=== PATIENT | female | born 1970 | race Caucasian/White ===

== ENCOUNTER 2016-06-16 00:51 | Observation (INO) | payer SELFPAY ==
[2016-06-16] MEDS ORDERED: ONDANSETRON 4 MG/2 ML VIAL ONE (01:14)
[2016-06-16] MEDS ORDERED: NS 1,000 ML IV ONE ×2 (01:24→02:34)
[2016-06-16] MEDS ORDERED: ONDANSETRON 4 MG/2 ML VIAL IVP ONE ×3 (01:24→02:34)
--- NOTE | 2016-06-16 01:29 | EDPHY ---
H & P Smoking Status: Never smoked Time Seen by Provider: 06/16/16 01:11 HPI/ROS: CHIEF COMPLAINT: Abdominal pain, vomiting HISTORY OF PRESENT ILLNESS: 46-year-old female presents to the emergency department with abdominal pain and vomiting that began around 3:00 p.m. this afternoon. She denies any known trauma or injury. She states that initially she started with abdominal pain which has become much worse. She has vomited 3 times. No back pain. No urinary symptoms. No reported trauma. No chest pain or difficulty breathing. No known ill contacts. No diarrhea. Last menstrual period was 1 month ago. REVIEW OF SYSTEMS: Constitutional: Subjective fevers. Eyes: No double or blurry vision. ENT: No sore throat. Respiratory: No cough, no shortness of breath. Cardiac: No chest pain. Gastrointestinal: Abdominal pain, vomiting as above. No diarrhea. Genitourinary: No dysuria. Musculoskeletal: No neck or back pain. Skin: No rashes. Neurological: No headache. (Sasha Gant) Past Medical/Surgical History: Negative (Sasha Gant M) Social History: Single and lives in [place] (Sasha Gant M) Physical Exam: General Appearance: Alert, no distress. Afebrile. Eyes: Pupils equal and round. Extraocular motions are all intact. ENT: Mouth: Mucous membranes moist. Respiratory: No wheezing, rhonchi, or rales, lungs are clear to auscultation. Cardiovascular: Regular rate and rhythm. Gastrointestinal: Abdomen is soft. Tenderness with palpation in the right lower quadrant and slightly in the left lower quadrant. There is no rebound, guarding or masses noted. No CVA tenderness bilaterally. Neurological: Alert and oriented x 3, cranial nerves II through XII grossly intact Skin: Warm and dry, no rashes. Musculoskeletal: Nontender to palpate along the cervical, thoracic or lumbar spine. Neck is supple. Extremities: Full range of motion and no peripheral edema. Psychiatric: Patient is oriented X 3, there is no agitation. (Sasha Gant M) Constitutional: Initial Vital Signs Temperature (C) 36.4 C 06/16/16 00:57 Heart Rate 71 06/16/16 00:57 Respiratory Rate 20 06/16/16 00:57 Blood Pressure 145/82 H 06/16/16 00:57 O2 Sat (%) 97 05/06/17 00:57 O2 Delivery Mode Room Air Allergies/Adverse Reactions: No Known Allergies Allergy (Unverified 06/16/16 00:57) Home Medications: Medication Instructions Recorded NK [No Known Home Meds] 06/16/16 Medical Decision Making ED Course/Re-evaluation: 46-year-old female presents to the emergency department with abdominal pain and vomiting. She is afebrile. Laboratory studies are pending. The patient has pain with palpation in the right lower quadrant as well as the left lower quadrant. I was concerned about possible acute appendicitis. She also could possibly have diverticular disease. I discussed the pros and cons of CT imaging of her abdomen and pelvis including radiation exposure and the patient agreed with CT scan. (Sasha Gant) [id number]: I did go and see and evaluate the patient. She does have right lower quadrant abdominal pain this pain started at 9:[address] scan has been called to me by Dr. Dexter merchant and shows acute appendicitis retrocecal. Possible perforation. I have ordered this patient other L fluid IV 1 g Invanz, IV Zofran and IV Dilaudid for pain control. I will consult General surgery for acute appendicitis. I did consult Dr. Nuñez with surgery who will come and see and evaluate the patient (Navneet Razo) Differential Diagnosis: Including but not limited to acute appendicitis, urinary tract infection, pyelonephritis, diverticulitis, peptic ulcer disease, GERD, gastritis (Sasha Gant) Care Turn Over: Care will be turned over to Dr. Navneet Razo at 2:00 a.m. for disposition and plan. (Sasha Gant) - Data Points Laboratory Results: Laboratory Results 06/16/16 01:20 06/16/16 01:20 06/16/16 06/16/16 06/16/16 01:42 01:20 01:20 WBC RBC Hgb POC Hgb 16.0 gm/dL H gm/dL (12.3-15.9) Hct POC Hct 47 % % (35.5-47.5) MCV MCH MCHC RDW Plt Count MPV Neut % (Auto) Lymph % (Auto) Yates % (Auto) Eos % (Auto) Baso % (Auto) Nucleat RBC Rel Count Absolute Neuts (auto) Absolute Lymphs (auto) Absolute Monos (auto) Absolute Eos (auto) Absolute Basos (auto) Absolute Nucleated RBC Immature Gran % Immature Gran # POC Sodium 143 mEq/L mEq/L (134-144) Sodium 139 mEq/L mEq/L (134-144) POC Potassium 3.6 mEq/L mEq/L (3.3-5.0) Potassium 4.2 mEq/L mEq/L (3.5-5.2) POC Chloride 104 mEq/L mEq/L (96-108) Chloride 108 mEq/L mEq/L (97-110) Carbon Dioxide 23 mEq/l mEq/l (22-31) Anion Gap 8 mEq/L mEq/L (8-16) POC BUN 12 mg/dL mg/dL (7-23) BUN 12 mg/dL mg/dL (7-23) Creatinine 0.8 mg/dL mg/dL (0.6-1.0) POC Creatinine 0.8 mg/dL mg/dL (0.6-1.2) Estimated GFR > 60 Glucose 132 mg/dL H mg/dL (70-100) POC Glucose 125 mg/dL H mg/dL (70-100) Calcium 8.7 mg/dL mg/dL (8.5-10.4) Total Bilirubin 0.6 mg/dL mg/dL (0.1-1.4) Conjugated Bilirubin 0.4 mg/dL mg/dL (0.0-0.5) Unconjugated Bilirubin 0.2 mg/dL mg/dL (0.0-1.1) AST 31 IU/L IU/L (14-46) ALT 37 IU/L IU/L (9-52) Alkaline Phosphatase 55 IU/L IU/L (38-126) Total Protein 6.0 g/dL L g/dL (6.3-8.2) Albumin 3.8 g/dL g/dL (3.5-5.0) Lipase 327.0 IU/L H IU/L (23-300) Beta HCG, Qual NEGATIVE Urine Color Urine Appearance Urine pH Ur Specific Shedd Urine Protein Urine Ketones Urine Blood Urine Nitrate Urine Bilirubin Urine Urobilinogen Ur Leukocyte Esterase Urine RBC Urine WBC Ur Epithelial Cells Urine Mucus Urine Glucose 06/16/16 06/16/16 01:20 01:10 WBC 11.83 10^3/uL H 10^3/uL (3.80-9.50) RBC 5.18 10^6/uL 10^6/uL (4.18-5.33) Hgb 14.5 g/dL g/dL (12.6-16.3) POC Hgb Hct 45.2 % % (38.0-47.0) POC Hct MCV 87.3 fL fL (81.5-99.8) MCH 28.0 pg pg (27.9-34.1) MCHC 32.1 g/dL L g/dL (32.4-36.7) RDW 14.1 % % (11.5-15.2) Plt Count 231 10^3/uL 10^3/uL (150-400) MPV 10.1 fL fL (8.7-11.7) Neut % (Auto) 84.4 % H % (39.3-74.2) Lymph % (Auto) 9.6 % L % (15.0-45.0) Yates % (Auto) 4.3 % L % (4.5-13.0) Eos % (Auto) 0.8 % % (0.6-7.6) Baso % (Auto) 0.5 % % (0.3-1.7) Nucleat RBC Rel Count 0.0 % % (0.0-0.2) Absolute Neuts (auto) 9.97 10^3/uL H 10^3/uL (1.70-6.50) Absolute Lymphs (auto) 1.14 10^3/uL 10^3/uL (1.00-3.00) Absolute Monos (auto) 0.51 10^3/uL 10^3/uL (0.30-0.80) Absolute Eos (auto) 0.10 10^3/uL 10^3/uL (0.03-0.40) Absolute Basos (auto) 0.06 10^3/uL 10^3/uL (0.02-0.10) Absolute Nucleated RBC 0.00 10^3/uL 10^3/uL (0-0.01) Immature Gran % 0.4 % % (0.0-1.1) Immature Gran # 0.05 10^3/uL 10^3/uL (0.00-0.10) POC Sodium Sodium POC Potassium Potassium POC Chloride Chloride Carbon Dioxide Anion Gap POC BUN BUN Creatinine POC Creatinine Estimated GFR Glucose POC Glucose Calcium Total Bilirubin Conjugated Bilirubin Unconjugated Bilirubin AST ALT Alkaline Phosphatase Total Protein Albumin Lipase Beta HCG, Qual Urine Color YELLOW Urine Appearance CLEAR Urine pH 5.0 (5.0-7.5) Ur Specific Shedd 1.019 (1.002-1.030) Urine Protein NEGATIVE (NEGATIVE) Urine Ketones 1+ H (NEGATIVE) Urine Blood NEGATIVE (NEGATIVE) Urine Nitrate NEGATIVE (NEGATIVE) Urine Bilirubin NEGATIVE (NEGATIVE) Urine Urobilinogen NEGATIVE EU EU (0.2-1.0) Ur Leukocyte Esterase NEGATIVE (NEGATIVE) Urine RBC 5-10 /hpf H /hpf (0-3) Urine WBC 1-3 /hpf /hpf (0-3) Ur Epithelial Cells TRACE /lpf /lpf (NONE-1+) Urine Mucus TRACE /lpf /lpf (NONE-1+) Urine Glucose NEGATIVE (NEGATIVE) Medications Given: Discontinued Medications Sodium Chloride (Ns) 1,000 mls @ 0 mls/hr IV ONCE ONE PRN Reason: Wide Open Stop: 06/16/16 01:25 Last Admin: 06/16/16 01:33 Dose: 1,000 mls Ondansetron HCl (Zofran) 4 mg IVP EDNOW ONE Stop: 06/16/16 01:25 Last Admin: 06/16/16 01:30 Dose: 4 mg Ondansetron HCl (Zofran) 4 mg IVP EDNOW ONE Stop: 06/16/16 01:57 Last Admin: 06/16/16 01:56 Dose: 4 mg Point of Care Test Results: 06/16/16 01:42 POC Sodium 143 POC Potassium 3.6 POC Chloride 104 POC BUN 12 POC Creatinine 0.8 POC Glucose 125 H Departure - Departure Clinical Impression: Abdominal pain Qualifiers: Abdominal location: right lower quadrant Qualified Code(s): R10.31 - Right lower quadrant pain Vomiting Qualifiers: Vomiting type: unspecified Vomiting Intractability: non-intractable Nausea presence: with nausea Qualified Code(s): R11.2 - Nausea with vomiting, unspecified Appendicitis Qualifiers: Appendicitis type: acute appendicitis Acute appendicitis type: with localized peritonitis Qualified Code(s): K35.3 - Acute appendicitis with localized peritonitis Referrals: David De Jesus DO [Doctor of Osteopathy] - As per Instructions (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
[2016-06-16 01:39] LABS: COLOR YELLOW; LEUKOCYTE ESTERASE,URINE NEGATIVE (NEGATIVE); NITRITE,URINE NEGATIVE (NEGATIVE)
[2016-06-16 01:50] LABS: ALANINE AMINOTRANSFERASE 37 IU/L (9-52); ALBUMIN 3.8 g/dL (3.5-5.0); ALKALINE PHOSPHATASE 55 IU/L (38-126); ANION GAP 8 mEq/L (8-16); ASPARTATE AMINOTRANSFERASE 31 IU/L (14-46); BILIRUBIN,TOTAL 0.6 mg/dL (0.1-1.4); BILIRUBIN-CONJUGATED 0.4 mg/dL (0.0-0.5); BILIRUBIN-UNCONJUGATED 0.2 mg/dL (0.0-1.1); CALCIUM 8.7 mg/dL (8.5-10.4); CARBON DIOXIDE 23 mEq/l (22-31); CHLORIDE 108 mEq/L (97-110); CREATININE 0.8 mg/dL (0.6-1.0); GLOMERULAR FILTRATION RATE > 60; GLUCOSE 132 mg/dL (70-100); POTASSIUM 4.2 mEq/L (3.5-5.2); SODIUM 139 mEq/L (134-144)
[2016-06-16 01:55] LABS: MUCUS TRACE /lpf (NONE-1+)
[2016-06-16] MEDS ORDERED: IOPAMIDOL (ISOVUE-300) 100 ML BTL IV ONE (01:59)
[2016-06-16 02:03] LABS: % IMMATURE GRANULYOCYTES 0.4 % (0.0-1.1); ABSOLUTE IMMATURE GRANULOCYTES 0.05 10^3/uL (0.00-0.10); ADD DIFF? NO; ADD MORPH? NO; ADD SCAN? NO; ATYPICAL LYMPHOCYTE FLAG 0 (0-99); FRAGMENT RBC FLAG 0 (0-99); HEMATOCRIT 45.2 % (38.0-47.0); HEMOGLOBIN 14.5 g/dL (12.6-16.3); LEFT SHIFT FLG 10 (0-99); LIPEMIA HEMOLYSIS FLAG 80 (0-99); MEAN CELL HEMOGLOBIN CONCENTR. 32.1 g/dL (32.4-36.7); MEAN CELL VOLUME 87.3 fL (81.5-99.8); MEAN PLATELET VOLUME 10.1 fL (8.7-11.7); PLATELET CLUMPS FLAG 40 (0-99); PLATELET COUNT 231 10^3/uL (150-400); RED BLOOD CELL COUNT 5.18 10^6/uL (4.18-5.33); RED CELL DISTRIBUTION WIDTH 14.1 % (11.5-15.2)
[2016-06-16] MEDS ORDERED: ERTAPENEM 1 GM in NS 100 ML IV ONE (02:34)
[2016-06-16] MEDS ORDERED: HYDROmorphONE/DILAUDID 1 MG/ML SYR IVP ONE (02:34)
[2016-06-16] MEDS ORDERED: HYDROmorphONE/DILAUDID 1 MG/ML SYR IVP PRN (03:57)
[2016-06-16] MEDS ORDERED: ONDANSETRON 4 MG/2 ML VIAL IVP PRN (03:57)
[2016-06-16] MEDS ORDERED: ACETAMINOPHEN 325 MG TAB PO SCH (04:00)
[2016-06-16] MEDS ORDERED: LR 1,000 ML IV SCH (04:00)
[2016-06-16] MEDS ORDERED: MIDAZOLAM 2 MG/2 ML VIAL ONE (04:22)
[2016-06-16] MEDS ORDERED: fentaNYL 250 MCG/5 ML INJ ONE (04:25)
[2016-06-16] MEDS ORDERED: METOCLOPRAMIDE 10 MG/2 ML VIAL ONE (04:26)
[2016-06-16] MEDS ORDERED: LIDOCAINE 2% 100 MG/5 ML SYR ONE (04:26)
[2016-06-16] MEDS ORDERED: DEXAMETHASONE 4 MG/ML VIAL ONE ×2 (04:26)
[2016-06-16] MEDS ORDERED: PROPOFOL 200 MG/20 ML VIAL ONE (04:26)
[2016-06-16] MEDS ORDERED: ROCURONIUM 50 MG/5 ML VIAL ONE (04:26)
--- NOTE | 2016-06-16 04:31 | GHP ---
[f rep st] PREOP HISTORY AND PHYSICAL DATE OF ADMISSION: 06/16/2016 ADMITTING DIAGNOSES: 1. Acute retrocecal appendicitis. 2. Right ovarian cyst. HISTORY: The patient is a 46-year-old white female who was in her usual state of good health when this evening approximately 9:15 she noticed the onset of an abdominal bloating and feeling as if she had diarrhea. She describes this as a heavy feeling in her belly. She tried to move her bowels, but was unable to. She then developed nausea at approximately 10:45 after heading home. She induced vomiting, which did not improve her pain and discomfort feeling. In the next 30 to 60 minutes, she vomited 2 more times. She came to the ER at 12: 30. She last ate at 4:30 p.m. She has had no prior similar symptoms. She has not had a recent upper respiratory tract infection. She has had diarrhea 1-2 times in the past 2 weeks. There is no history of inflammatory bowel disease. There is no history of abdominal surgery. There is no history of travel or antibiotic use in the last 6 months. Her last menstrual period was 1 month ago. SOCIAL HISTORY: She is a nonsmoker. She has 1 to 2 drinks per month. At 1 time in the remote past, she had Percocet and she may or may not have had a rash. MEDICATIONS: She does not take any medications chronically. PAST SURGICAL HISTORY: Her only surgery has been a wisdom tooth extraction. PAST MEDICAL HISTORY: There is no history of rheumatic fever, tuberculosis, hepatitis, transfusions or HIV. REVIEW OF SYSTEMS: She is nearsighted. Her last mammogram was 5 years ago. There are no limits on her activities. No history of steroid use. She states that one of her fallopian tubes is blocked. FAMILY HISTORY: Her mother is 64, she has high blood pressure. Her father is 80 years old. She has a stepfather at this point. The children are a maternal half sister at 57, a paternal half brother at 54, paternal half sister of 52. Patient is followed in by a maternal half brother who is 45, and a maternal half sister who is 30. There is no bleeding disorders, clotting disorders or difficult anesthesia in the patient or her family. PHYSICAL EXAMINATION: GENERAL: She is seen lying in bed, complaining of abdominal discomfort. NEUROLOGIC: She is awake, alert, and oriented. There are no focal lateralizing neurologic findings. She is pleasant and conversant. There are no carotid bruits. Thyroid is not enlarged. LYMPHATIC: There is no cervical, supraclavicular, axillary or inguinal lymphadenopathy. BACK: Unremarkable. SKIN: Moist and normal. Turgor is normal. LUNGS: Clear to auscultation. CARDIAC: Shows S1, S2 to be normal. ABDOMEN: Generous. There is a redness in the umbilical site, which she says is chronic because of sweating when she is at the gym. She is tender with a cough at about a 7 in the right mid abdomen and also complains of pain with cough over the iliac crest. Psoas and obturator signs are negative. Abdominal auscultation shows distinctly hypoactive bowel sounds with present bowel sounds. Psoas and obturator signs are negative. To palpation, left upper quadrant is a 1 on a scale of 1 to 10, left mid abdomen is 2, left lower quadrant is 1, epigastrium is 1, periumbilical area is 2, suprapubic area is 2, right upper quadrant is 5, right mid abdomen is 7, over the iliac crest it is 6 , in the right lower quadrant it is 2. IMAGING: Her CT shows an appendicolith and a dilated retrocecal appendix with periappendiceal stranding and thickening of the appendiceal wall, consistent with acute appendicitis. There is a right ovarian cyst. She has gallstones and a fat filled umbilical hernia. LABORATORY VALUES: White count is 11.8 with 84% neutrophils. Hematocrit is 45 , platelet count is 231. Glucose is 132. Lipase is 327. Urine analysis is unremarkable. Beta hCG is negative. IMPRESSION: Patient with acute appendicitis. PLAN: Will plan a laparoscopic appendectomy. She understands the planned procedure and agrees to proceed as outlined. /[id number]/MODL MTDD
[2016-06-16] MEDS ORDERED: KETOROLAC 30 MG/1 ML SDV ONE (04:32)
[2016-06-16] MEDS ORDERED: SUGAMMADEX SODIUM 200 MG/2 ML VIAL IVP ONE (05:51)
--- NOTE | 2016-06-16 06:29 | POSTOPPROG ---
Post Op Note Date of Operation: 06/16/16 Surgeon: Dominick Nuñez Anesthesia: GET(General Endotracheal) Pre-op Diagnosis: acute appendicitis, right ovarian cyst, umbilical hernia, cholelithiasis Post-op Diagnosis: acute appendicitis, umbi hernia, cholelithiasis, endometriosis/ L tubal obs Indication: acute appendicitis Procedure: laparoscopic appendectomy and removal of left fallopian tube Findings: acute appendicitis, umbi hernia, cholelithiasis, endometriosis/ L tubal obs Inf/Abcess present in the surg proc area at time of surgery?: No EBL: Minimal Total fluids administered: 2600 since ER admission Complications: none Drains: Steven Holloway Specimen(s): appendix, left fallopian tube, peritoneal fluid for culture
--- NOTE | 2016-06-16 07:11 | GOP ---
[f rep st] OPERATIVE REPORT DATE OF OPERATION: 06/16/2016 SURGEON: Dominick Nuñez MD ANESTHESIA: General endotracheal. PREOPERATIVE DIAGNOSIS: Acute appendicitis, right ovarian cyst, umbilical hernia, cholelithiasis, tubal obstruction POSTOPERATIVE DIAGNOSIS: Acute appendicitis, umbilical hernia, cholelithiasis, endometriosis, left tube tubal obstruction. PROCEDURE PERFORMED: Laparoscopic appendectomy and left salpingectomy. FINDINGS: 1. Acute appendicitis. 2. Umbilical hernia. 3. Cholelithiasis. 4. Endometriosis with implants on uterus near left cornua. 5. Left tubal obstruction. SPECIMENS: 1. Appendix. 2. Left fallopian tube. 1. Peritoneal fluid for culture. 3. ESTIMATED BLOOD LOSS: Minimal INDICATIONS: Acute appendicitis. DESCRIPTION OF PROCEDURE: The patient was placed on the operating table in supine position. After induction of adequate general endotracheal anesthesia, the abdomen was carefully clipped, prepped and draped. A surgical time-out was carried out and agreed to by all members of the operative team. A curvilinear incision was planned in the periumbilical area region. Left lower quadrant oblique incision and a transverse suprapubic incision were also planned. The skin was incised at all 3 sites. Dissection through umbilical site was taken down to the rectus sheath which was elevated between 2 Allis clamps. It was divided with the division just slightly left of the midline. The peritoneum was entered. A pursestring 0 PDS was used to incorporate both the left anterior and posterior rectus sheath and the right rectus sheath. The peritoneum was entered. An 11/12 mm disposable Cindi trocar was positioned and intraabdominal insufflation was carried out to 15 mmHg. A 5 mm left lower quadrant port and 5 mm suprapubic port were placed under direct vision. There is some turbid molina yellow fluid in the pelvis. Fluid was aspirated anaerobically and sent for cultures. Irrigation with heparin and Ancef containing irrigant was used throughout the case. There was a bluish tubular structure in the left lower quadrant which appears to be the left fallopian tube. There was a 10 mm dome shape cyst at the left cornua of the uterus. There were adhesions in the pelvis. The appendix and cecum had to be mobilized once the patient was placed in Trendelenburg position and rotated 5 degrees to the left. Mobilization was carried out with the harmonic Scalpel. The mesoappendix was divided down to the base of the appendix. Appendix was elevated and divided with Endo-HELLEN stapler. The specimen was placed in EndoCatch bag and removed. The small bowel was now carefully run for a distance of approximately 3 feet. There was no evidence of Meckel's diverticulum or mesenteric adenitis. Attention was directed to the ovaries where photographic documentation was carried out. The left uterine cornu endometrioma was photographed. There was markedly distended left fallopian tube. It was carefully dissected free of adhesions. It was transected with the Harmonic scalpel distal to the area of obstruction. An endoloop was placed on the free end. The specimen was removed in an EndoCatch bag. A 10 flat BARBARA drain was placed in the pelvis and let out through the left lower quadrant port site. It was secured to the skin with a suture of #3-0 silk. Hemostasis was excellent. Ports removed under direct vision. I opted not to repair the umbilical hernia at this time as it is a narrow neck and it is fat filled and there was purulent material in the perineum. A simple suture of #0 PDS was placed side to side at the mid fascial incision. The pursestring was tied and then the transverse PDS was also tied. This resulted in excellent closure. The subcutaneous tissue was irrigated with heparin and Ancef containing irrigant. The suprapubic skin incision and the umbilical skin incision were closed with interrupted dermal sutures of #4-0 Vicryl. Mastisol and Steri-Strips were placed. A sterile dressing was placed at the umbilicus. Band-Aids placed at the suprapubic site. 4 x 4's were placed around the BARBARA drain. The patient was transferred to recovery in stable and satisfactory condition. FLUIDS ADMINISTERED: 2600 since ER admission at approximately midnight. COMPLICATIONS: None. DRAIN PLACED: Steven Holloway. /[id number]/MODL MTDD
[2016-06-16] MEDS: KETOROLAC 15 MG/1 ML SDV IVP SCH ×3 (08:00→20:00)
[2016-06-16] MEDS: ACETAMINOPHEN 500 MG TAB PO SCH ×3 (08:36→22:30)
[2016-06-16 20:09] VITALS: RESP 16
[2016-06-17] MEDS: KETOROLAC 15 MG/1 ML SDV IVP SCH ×2 (01:37→05:57)
[2016-06-17 05:42] VITALS: BP 107/56; PULSE 64; TEMP 98.3; O2SAT 94
[2016-06-17] MEDS: ACETAMINOPHEN 500 MG TAB PO SCH (05:44)
--- NOTE | 2016-06-17 09:35 | SOAPPROG ---
SOAP Progress Note Assessment/Plan: 06/17/16 09:31 POD#1 Assessment: Doing well. Pain controlled, VSS, Passing flatus Plan: Home today Subjective: I'm feeling much better Objective: Vital Signs Temp Pulse Resp BP Pulse Ox 36.8 C 64 16 107/56 L 94 06/17/16 05:40 06/17/16 05:40 06/17/16 05:40 06/17/16 05:40 06/17/16 05:40 Microbiology 06/16/16 05:30 Gram Stain - Final Peritoneal Fluid - Aspirate 06/16/16 06/17/16 06/18/16 05:59 05:59 05:59 Intake Total 2300 1400 Output Total 1731 Balance 2300 -331 - Time Spent With Patient Time Spent With Patient: 15 - Pending Discharge Pending Discharge Within 24 Hours: Yes Pending Discharge Date: 06/18/16 Pending Discharge Time: 11:00 Physical Exam - Physical Exam General Appearance: WD/WN, alert, no apparent distress Neck: non-tender, full range of motion, supple, normal inspection Respiratory: chest non-tender, lungs clear, normal breath sounds Cardiac/Chest: regular rate, rhythm Abdomen: normal bowel sounds, non-tender, soft, other (BARBARA with only 25cc since surgery - removed. Incisions clean and dry) Pelvic Exam: deferred Rectal: deferred Back: Normal inspection Skin: normal color, warm/dry Extremities: normal range of motion Neuro/Psych: no motor/sensory deficits, alert, normal mood/affect, oriented x 3 ICD10 Worksheet Patient Problems: Problems Problem Status Onset Abdominal pain Acute Appendicitis Acute Vomiting Acute
--- NOTE | 2016-06-17 10:14 | GDS ---
[f rep st] DISCHARGE SUMMARY DISPOSITION: Home. CONDITION: Good. PROCEDURE PERFORMED: Laparoscopic appendectomy and left salpingectomy. DIAGNOSES: 1. Acute appendicitis. 2. Obstruction of left tube. 3. Endometriosis involving left cornua of the uterus. 4. Umbilical hernia. 5. Cholelithiasis. DIET RECOMMENDATIONS: There are no restrictions on diet, but I suggest that she avoid constipating foods, such as bananas, rice, applesauce, and cheese. There is no restriction of the texture. MEDICATIONS AT DISCHARGE: Include Tylenol 1000 mg every 8 hours, Toradol 10 mg every 6 hours, and f or breakthrough pain Dilaudid 2-4 mg every 4 hours. ACTIVITIES AND RESTRICTIONS: For the next 3 weeks, she is to lift less than 10 pound, and minimize her activity to gentle walking. She is to shower only. She is to keep her Steri-Strips in place. She is to take a multivitamin with zinc, copper and C daily for 3 weeks. She may return to work as long as she lifts less than 10 pounds for 3 weeks. She may start work on Saturday, but she is to only work 4 hours a day for 2 days to make sure she could tolerate, and if she can tolerate, return to n ormal shift. She is to watch for signs for superficial infection, such as redness, warmth, tenderne ss, and swelling, and for deep space infection manifested by loss of appetite, fevers, chills and fa tigue. She may pick up and delivery driver a copy of her path report at Dr. Butterfield's office, she should check as of June 21 to see if it is ready. FOLLOW UP: She is to follow up with Dr. Butterfield in 2 weeks as needed. I suggest she follow up with dance instructor, with the path report of the left fallopian tube, and malu use of the endometrial implant on the uterus. HOSPITAL COURSE: The patient was admitted and taken to the operating room. There was purulent mate rial noted in the pelvis, no organisms were seen. There were 4+ white cells identified. Cultures a re still growing. I doubt that it will be of any significance. She had a BARBARA drain, which cleared only 25 cc of a very light pink fluid over the 24 hours postoperat ively. The drain has been removed. She is passing gas, feels well, and is set for discharge. /[id number]/MODL
== END 2016-06-17 11:24 | disposition home or self-care (01) ==
LOC: INTOOBSV 02:38 → F1N 07:53
PROVIDERS: ADMIT Surgery; ATTEND Surgery
DX: K35.80 Unspecified acute appendicitis (principal); Q50.6 Other congenital malformations of fallopian tube and broad ligament; N80.0 Endometriosis of uterus; K42.9 Umbilical hernia without obstruction or gangrene; K80.20 Calculus of gallbladder without cholecystitis without obstruction; N83.201 Unspecified ovarian cyst, right side
CPT/HCPCS: 82947-QW; 96365; G0378; J1100; J1170; J1335; J1885; J2001; J2250; J2405; J2704; J2765; J3010; Q9967